=== PATIENT | male | born 1950 | race Caucasian/White ===

== ENCOUNTER → 2019-08-02 | Outpatient (CLI) | payer OTHER ==
--- NOTE | 2019-08-02 09:45 | PCVCIMAG ---
APPROVED REPORT Laterality: Bilateral Patient Location: Out-Patient Indications Stenosis Doppler Spectral Velocity Analysis PSV / EDVPSV / EDV ECA (R) 124 / 14 cm/sECA (L) 110 / 12 cm/s dICA (R) 41 / 13 cm/sdICA (L) 75 / 21 cm/s Lamin (R) 51 / 16 cm/smICA (L) 97 / 28 cm/s pICA (R) 92 / 16 cm/spICA (L) 117 / 17 cm/s Bulb (R) 93 / 17 cm/sBulb (L) 149 / 19 cm/s dCCA (R) 118 / 17 cm/sdCCA (L) 158 / 19 cm/s mCCA (R) 127 / 21 cm/smCCA (L) 173 / 23 cm/s Vert (R) 37 / 7 cm/sVert (L) 68 / 19 cm/s ICA/CCA 0.78ICA/CCA 0.74 Findings The right carotid bulb has mild plaque. The right proximal internal carotid artery shows no significant stenosis. The right common carotid artery shows no significant stenosis. The right external carotid artery shows no significant stenosis. The left carotid bulb has mild plaque. The left proximal internal carotid artery shows no significant stenosis. The left common carotid artery shows no significant stenosis. The left external carotid artery shows no significant stenosis. Conclusion 1. Mild bilateral plaquing without significant stenosis. 2. Antegrade vertebral flow.
--- NOTE | 2019-08-02 13:09 | PCVCIMAG ---
EXAM: AORTOILIAC DUPLEX INDICATION: Palpable fullness in the abdomen. FINDINGS: AORTA: Suprarenal aorta measures maximum diameter of 2.9 cm. There is not a fusiform infrarenal aortic aneurysm. The infrarenal aorta measures maximum diameter of 2.3 cm. No aortic stenosis. RIGHT COMMON ILIAC ARTERY: Maximum diameter is 1.4 cm. No significant stenosis. RIGHT EXTERNAL ILIAC ARTERY: No significant stenosis. LEFT COMMON ILIAC ARTERY: Maximum diameter is 1.4 cm. No significant stenosis. LEFT EXTERNAL ILIAC ARTERY: No significant stenosis. IMPRESSION: No abdominal aortic aneurysm. No aortoiliac stenosis seen. LOC:[place] [id number]
== END | disposition home or self-care (01) ==
LOC: PCVCIMAG 09:04
PROVIDERS: ATTEND Internal Medicine
DX: I65.23 Occlusion and stenosis of bilateral carotid arteries (principal); I10 Essential (primary) hypertension; R93.1 Abnormal findings on diagnostic imaging of heart and coronary circulation; K21.0 Gastro-esophageal reflux disease with esophagitis; E78.5 Hyperlipidemia, unspecified; F17.201 Nicotine dependence, unspecified, in remission
CPT/HCPCS: 93880; 93978

== ENCOUNTER → 2019-08-03 | Outpatient (CLI) | payer OTHER ==
[~2019-08-03] MED LIST: REGADENOSON 0.4 MG/5 ML DISP.SYRIN. IV ONE
--- NOTE | 2019-08-03 09:23 | PCVCIMAG ---
APPROVED REPORT Study performed: 08/03/2019 08:11:01 EXAM: Comprehensive 2D, Doppler, and color-flow Echocardiogram Patient Location: Echo lab Room #: 3Status: routine BSA: 1.87 HR: 62 bpmBP: 168/90 mmHg Rhythm: NSR Other Information Study Quality: Adequate Risk Factors: Cardiac Risk Factors: HTN, Hyperlipidemia Indications Dyspnea on Exertion Elevated CA Score 2D Dimensions IVSd: 12.00 (7-11mm)LVOT Diam: 20.00 (18-24mm) LVDd: 44.30 mm PWd: 11.94 (7-11mm)Ascending Ao: 30.86 (22-36mm) LVDs: 27.59 (25-40mm) Left Atrium: 42.60 (27-40mm) Aortic Root: 30.92 mm LV Single Plane 4CH: 63.60 % LV Single Plane 2CH: 58.65 % Biplane EF: 61.2 % Volumes Left Atrial Volume (Systole) Single Plane 4CH: 68.37 mLSingle Plane 2CH: 80.01 mL LA ESV Index: 40.00 mL/m2 Aortic Valve AoV Peak Toro.: 1.75 m/s AO Peak Gr.: 12.25 mmHgLVOT Max P.69 mmHg LVOT Max V: 1.08 m/s SALLY Vmax: 1.92 cm2 Mitral Valve E/A Ratio: 0.8 MV Decel. Time: 221.73 ms MV E Max Toro.: 0.82 m/s MV A Toro.: 1.01 m/s IVRT: 76.12 ms TDI E/Lateral E': 8.20E/Medial E': 10.25 Medial E' Toro.: 0.08 m/s Lateral E' Toro.: 0.10 m/s Pulmonary Valve PV Peak Toro.: 1.33 m/sPV Peak Gr.: 7.05 mmHg Pulmonary Vein P Vein S: 0.64 m/sP Vein A: 0.34 m/s P Vein D: 0.48 m/sP Vein A Dur.: 103.8 msec P Vein S/D Ratio: 1.33 Tricuspid Valve TR Peak Toro.: 2.50 m/sRAP Estimate: 7.00 mmHg TR Peak Gr.: 25.07 mmHg PA Pressure: 32.00 mmHg Left Ventricle The left ventricle is normal size. There is normal LV segmental wall motion. Mild concentric left ventricular hypertrophy. Left ventricular systolic function is normal. The left ventricular ejection fraction is within the normal range. LVEF is 60-65%. Mild diastolic dysfunction is present (impaired relaxation pattern). Right Ventricle The right ventricle is normal size. The right ventricular systolic function is normal. Atria Left atrium is mildly dilated. The right atrium size is normal. Aortic Valve The aortic valve is normal in structure. No aortic regurgitation is present. There is no aortic valvular stenosis. Mitral Valve The mitral valve is normal in structure. Trace mitral regurgitation. No evidence of mitral valve stenosis. Tricuspid Valve The tricuspid valve is normal in structure. Trace tricuspid regurgitation. Pulmonary artery pressure is 30 mmHg. Pulmonic Valve The pulmonary valve is normal in structure. There is no pulmonic valvular regurgitation. Great Vessels The aortic root is normal in size. The ascending aorta is normal in size. IVC is normal in size and collapses >50% with inspiration. Pericardium There is no pericardial effusion. <Conclusion> Left ventricular systolic function is normal. There is normal LV segmental wall motion. LVEF is 60-65%. Mild LVH Mild diastolic dysfunction is present (impaired relaxation pattern). Left atrium is mildly dilated. The aortic valve is normal in structure. No aortic regurgitation or stenosis. The mitral valve is normal in structure. Trace mitral regurgitation. Trace tricuspid regurgitation. Pulmonary artery pressure of 30 mmHg. There is no pericardial effusion.
--- NOTE | 2019-08-03 17:20 | PCVCIMAG ---
APPROVED REPORT Imaging Protocol: Rest Tc-99m/Stress Tc-99m 1 day Study performed: 08/03/2019 09:30:34 Indication: High Calcium Score Patient Location: Out-Patient Stress Nurse: Erin Doss RN [place] Tech:PERLA Herron Ht: 5 ft 5 in Wt: 175 lbs BSA: 1.87 m2 HR: 62 bpm BP: 169/79 mmHg BMI: 29.1 Rhythm: Sinus Bradycardia Medical History Medical History: Hyperlipidemia, HTN, Former Smoke, Elevated Calcium Score Medications: ASA, Bystolic, Benicar, Crestor Allergies: Latex PCN Pretest Chest Pain Characteristics: No chest pain Exercise History: Indeterminate Meds Held (24 hrs): Bystolic Resting Data Rest SPECT myocardial perfusion imaging was performed in supine position 45 minutes following the intravenous injection of 10.8 mCi of Tc-99m Sestamibi. Time of rest injection: 09 Date: 08/03/2019 Administration Route: IV Administration Site: Right AC Pharmacologic Stress Pharmacologic stress test was performed by injecting Regadenoson 0.4 mg IV push over 10-15 seconds immediately followed by the intravenous injection of 33.3 mCi of Tc-99m Sestamibi. Time of stress injection: 1025 Date: 08/03/2019 Administration Route: IV Administration Site: Right AC Gated Stress SPECT was performed 45 minutes after stress injection. The images were gated to evaluate regional wall motion and calculate left ventricular ejection fraction. Stress Test Details Stress Test: Pharmacologic stress testing performed using 0.4 mg of regadenoson per 5 mL given IV over 10 seconds. Reason for pharmacologic stress test: Traumatic Leg Injury. HRMax Heart Rate (APMHR): 153 bpm Resting HR: 62 bpmTarget HR (85% APMHR): 130 bpm BP Resting BP: 169/69 mmHg Max BP: 156/83 mmHg Recovery BP: 188/70 mmHg ECG Resting ECG: Clear Stress ECG: Sinus Rhythm ST Change: None Maximum ST Deviation: 0 mm Arrhythmia: None Recovery ECG: Sinus Rhythm Recovery ST Change: None Recovery ST Deviation: 0 mm Recovery Arrhythmia: None Clinical Reason for Termination: Completed protocol Stress Symptoms: Abdominal discomfort, Dyspnea Exercise duration: min 55 sec Symptoms resolved with caffeine. Stress ECG Conclusion ECG: Non-ischemic Clinical: Non-ischemic Study Quality Study: Good Study Data Post stress, the left ventricular ejection was 67%.. SSS: 0 SRS: 0 SDS: 0 TID = 1.04. Perfusion No evidence of stress induced ischemia or prior myocardial infarction. Wall Motion Normal left ventricular size and function with no regional wall motion abnormalities. Nuclear Conclusion No evidence of stress induced ischemia or prior myocardial infarction. Normal left ventricular size and function with no regional wall motion abnormalities. Post stress, the left ventricular ejection was 67%. No prior study available for comparison. Interpreted by: Pj Pena MD Electronically Approved: 08/03/2019 12:05:38 <Conclusion> ECG: Non-ischemic Clinical: Non-ischemic
== END | disposition home or self-care (01) ==
LOC: PCVCIMAG 08:15
PROVIDERS: ATTEND Internal Medicine
DX: R93.1 Abnormal findings on diagnostic imaging of heart and coronary circulation (principal); R06.00 Dyspnea, unspecified; I10 Essential (primary) hypertension; I65.23 Occlusion and stenosis of bilateral carotid arteries; K21.0 Gastro-esophageal reflux disease with esophagitis; F17.201 Nicotine dependence, unspecified, in remission
CPT/HCPCS: 78452; 93017; 93306; A9500; J2785